=== PATIENT | female | born 1965 | race Caucasian/White ===

== ENCOUNTER → 2016-09-14 | Outpatient (CLI) | payer BC ==
[~2016-09-14] MED LIST: CIPRO 500MG TA500 MG PO; MAGIC MOUTH PO; NO HOME MEDICATIONS; PERCOCET 325 MG1 TA2 PO; PERCOCET 5/321 UDTAB PO; PHENERGAN 25 TA25 MG PO
== END ==
LOC: MC.RAD 14:47
DX: Z12.31 Encounter for screening mammogram for malignant neoplasm of breast (principal); Z80.3 Family history of malignant neoplasm of breast

== ENCOUNTER → 2017-09-19 | Outpatient (CLI) | payer BC | LOC: MC.RAD 12:35 | DX: Z12.31 Encounter for screening mammogram for malignant neoplasm of breast (principal) ==

== ENCOUNTER → 2018-09-27 | Outpatient (CLI) | payer SELFPAY | LOC: MC.RAD 10:33 | DX: Z12.31 Encounter for screening mammogram for malignant neoplasm of breast (principal) ==

== ENCOUNTER → 2019-03-04 | Outpatient (CLI) | payer SELFPAY | LOC: COL.RAD 10:22 | DX: R10.2 Pelvic and perineal pain (principal) ==

== ENCOUNTER → 2019-09-30 | Outpatient (CLI) | payer SELFPAY | LOC: MC.RAD 09:40 | DX: Z12.31 Encounter for screening mammogram for malignant neoplasm of breast (principal) ==

== ENCOUNTER 2020-02-02 08:47 | Emergency (ER) | payer SELFPAY ==
[~2020-02-02] VITALS: Ht 154.9 cm; Wt 52.3 kg
[~2020-02-02 08:47] MED LIST changes: -ASPIRIN E.C. 8181 MG PO
[2020-02-02 09:02] VITALS: BP 92/60; PULSE 66; TEMP 98.4
[2020-02-02] MEDS ORDERED: ASPIRIN E.C. 8181 MG PO (10:06)
== END 2020-02-02 10:17 | disposition home or self-care (01) ==
LOC: COL.ER 08:47
DX: T76.21XA Adult sexual abuse, suspected, initial encounter (principal)

== ENCOUNTER → 2020-02-02 | Outpatient (REF) | payer SELFPAY ==
[~2020-02-02] MED LIST changes: +ASPIRIN E.C. 8181 MG PO
== END ==
LOC: COL.ER 08:53
DX: T74.21XA Adult sexual abuse, confirmed, initial encounter (principal)

== ENCOUNTER 2020-03-26 02:18 | Emergency (ER) | payer OTHER ==
[~2020-03-26] VITALS: Ht 157.5 cm; Wt 53.6 kg
[~2020-03-26 02:18] MED LIST changes: +ASPIRIN E.C. 8181 MG PO
[2020-03-26 02:19] VITALS: TEMP 98.2
[2020-03-26 03:26] LABS: BASO % 0.6 % (0.0-2.0); EOS # 0.1 (0.0-0.7); EOS % 1.4 % (0-4.0); GRAN # 2.3 (1.4-6.5); GRAN % 45.6 % (42.2-75.2); HEMOGLOBIN 12.2 g/dl (12.5-16.0); LYMPH # 2.2 (1.2-3.4); MEAN CELL VOLUME 89 fl (80.0-100.0); MEAN CORPUSCULAR HEMOGLOBIN 30 pg (27.0-31.0); MEAN CORPUSCULAR HGB CONC 33 g/dl (33.0-37.0); MEAN PLATELET VOLUME 9.3 fl (7.4-10.4); MONO # 0.5 (0.1-0.6); MONO % 9.2 % (1.7-9.3); PLATELET COUNT 236 K/mm3 (130-400); RED BLOOD COUNT 4.12 M/mm3 (4.10-5.30); REDCELL DISTRIBUTION WIDTH-CV 12.4 % (11.5-14.5)
[2020-03-26 03:33] LABS: ALANINE AMINOTRANSFERASE 27 U/L (4-34); ALBUMIN 4.2 gm/dL (3.5-5.0); ALKALINE PHOSPHATASE 67 U/L (50-136); ANION GAP 8 mmol/L (7-16); AST,SGOT 38 U/L (15-37); BILIRUBIN,TOTAL 0.3 mg/dL (0.0-1.0); BLOOD UREA NITROGEN 19 mg/dL (7-17); CALCIUM 9.3 mg/dL (8.4-10.2); CARBON DIOXIDE 25 mmol/L (22-30); CHLORIDE 105 mmol/L (98-107); CREATININE, serum 0.79 (0.52-1.25); GLUCOSE 99 mg/dL (74-106); POTASSIUM 3.9 mmol/L (3.4-5.0); SODIUM 138 mmol/L (137-145); TOTAL PROTEIN 7.2 gm/dL (6.4-8.2)
[2020-03-26 03:45] LABS: HEMATOCRIT 36.6 % (37.0-47.0)
[2020-03-26 03:47] LABS: COLLECTION METHOD CLEAN CATCH
[2020-03-26 03:52] LABS: ACETAMINOPHEN < 10 ug/mL (10-30); ALCOHOL(ethanol),MEDICAL < 10 mg/dL; SALICYLATE < 1.0 mg/dL
[2020-03-26 03:53] LABS: MUCOUS Present /lpf; PH 5 (5-8); SQUAMOUS EPITHELIAL 0-2 /hpf; URINE APPEARANCE Clear; URINE BACTERIA Rare /hpf; URINE BILIRUBIN Negative (NEGATIVE); URINE BLOOD Negative (NEGATIVE); URINE COLOR Yellow; URINE GLUCOSE Negative (NEGATIVE); URINE KETONE Negative (NEGATIVE); URINE LEUKOCYTE ESTERASE Negative (NEGATIVE); URINE NITRATE Negative (NEGATIVE); URINE PROTEIN(semi-quant) Negative (NEGATIVE); URINE RBC 0-2 /hpf; URINE UROBILINOGEN Negative (NEGATIVE)
[2020-03-26 04:05] LABS: TRICYCLIC ANTIDEPRESS URINE NEGATIVE
[2020-03-26 04:48] VITALS: BP 113/74; PULSE 69
== END 2020-03-26 04:48 | disposition home or self-care (01) ==
LOC: COL.ER 02:18
PROVIDERS: Emergency Medicine
DX: T76.21XA Adult sexual abuse, suspected, initial encounter (principal); Z79.82 Long term (current) use of aspirin

== ENCOUNTER → 2020-04-06 | Outpatient (CLI) | payer OTHER | LOC: MC.RAD 13:00 | DX: N64.4 Mastodynia (principal) ==

== ENCOUNTER → 2021-02-09 | Outpatient (CLI) | payer OTHER | LOC: MC.RAD 10:35 | DX: Z12.31 Encounter for screening mammogram for malignant neoplasm of breast (principal) ==

== ENCOUNTER 2021-12-16 19:46 | Emergency (ER) | payer OTHER ==
[~2021-12-16] VITALS: Ht 154.9 cm; Wt 56.8 kg
[2021-12-16 20:03] VITALS: TEMP 97.4
[2021-12-16 21:11] LABS: BASO % 0.6 % (0.0-2.0); EOS % 0.8 % (0.0-4.0); GRAN # 3.2 K/mm3 (1.4-6.5); GRAN % 64.8 % (42.2-75.2); HEMOGLOBIN 11.9 g/dl (12.5-16.0); LYMPH # 1.3 K/mm3 (1.2-3.4); LYMPH % 26.1 % (20.0-51.0); MEAN CELL VOLUME 86 fl (80.0-100.0); MEAN CORPUSCULAR HEMOGLOBIN 30 pg (27-31); MEAN CORPUSCULAR HGB CONC 34 g/dl (33.0-37.0); MONO # 0.4 K/mm3 (0.1-0.6); MONO % 7.3 % (1.7-9.3); PLATELET COUNT 258 K/mm3 (130-400); RED BLOOD COUNT 4.03 M/mm3 (4.10-5.30); REDCELL DISTRIBUTION WIDTH-CV 12.7 % (11.5-14.5)
[2021-12-16 21:12] LABS: HEMATOCRIT 34.8 % (37.0-47.0)
[2021-12-16 21:25] LABS: ALANINE AMINOTRANSFERASE 22 U/L (0-55); ALBUMIN 4.1 gm/dL (3.5-5.0); ALKALINE PHOSPHATASE 59 U/L (40-150); ANION GAP 11 mmol/L (7-16); AST,SGOT 27 U/L (5-34); BILIRUBIN,TOTAL 0.4 mg/dL (0.2-1.2); BLOOD UREA NITROGEN 15 mg/dL (10-20); CALCIUM 8.9 mg/dL (8.4-10.2); CARBON DIOXIDE 22 mmol/L (22-29); CHLORIDE 107 mmol/L (98-107); CREATININE, serum 0.78 mg/dL (0.57-1.11); GLUCOSE 111 mg/dL (70-99); POTASSIUM 4.2 mmol/L (3.5-4.5); SODIUM 140 mmol/L (136-145); TOTAL PROTEIN 7.1 gm/dL (6.2-8.1)
[2021-12-16 21:32] LABS: TROPONIN-I < 0.010 ng/mL (0.00-0.033)
[2021-12-16 22:15] VITALS: BP 105/67; PULSE 59
== END 2021-12-16 22:20 | disposition home or self-care (01) ==
LOC: COL.ER 19:46
PROVIDERS: Physician Assistant
DX: S00.81XA Abrasion of other part of head, initial encounter (principal); I95.1 Orthostatic hypotension; W22.8XXA Striking against or struck by other objects, initial encounter; Y92.39 Other specified sports and athletic area as the place of occurrence of the external cause

== ENCOUNTER → 2022-02-16 | Outpatient (CLI) | payer OTHER | LOC: MC.RAD 15:05 | DX: Z12.31 Encounter for screening mammogram for malignant neoplasm of breast (principal) ==

== ENCOUNTER 2023-10-01 18:00 | Emergency (ER) | payer OTHER ==
[~2023-10-01] VITALS: Ht 154.9 cm; Wt 52.3 kg
[2023-10-01 18:07] VITALS: TEMP 97.2
[2023-10-01 19:57] VITALS: BP 137/77; PULSE 76
== END 2023-10-01 19:58 | disposition home or self-care (01) ==
LOC: COL.ER 18:00
DX: M79.605 Pain in left leg (principal)

== ENCOUNTER → 2024-04-23 | Outpatient (CLI) | payer OTHER | LOC: MC.RAD 12:42 | DX: Z12.31 Encounter for screening mammogram for malignant neoplasm of breast (principal) ==